=== PATIENT | male | born 1995 | race Caucasian/White ===

== ENCOUNTER 2017-12-23 07:49 | Outpatient (CLI) | payer OTHER ==
--- NOTE | 2017-12-23 11:54 | MRI Report ---
Reason: PAIN IN LEFT FOOT Procedure Date: 12/23/2017 Accession Number: [id number] / [id number] Procedure: MRI - Foot LT W/O CPT Code: FULL RESULT: EXAM: LEFT MIDFOOT MRI WITHOUT CONTRAST EXAM DATE: 12/23/2017 08:43 AM. CLINICAL HISTORY: Plantar left midfoot pain. COMPARISON: None. TECHNIQUE: Multiplanar, multisequence T1-weighted and fluid-sensitive sequences of the midfoot without contrast. Other: None. FINDINGS: Bones: No fractures or subluxations. No marrow edema. No bone lesions. Articular Cartilage: Unremarkable. Ligaments: The visualized intertarsal, intermetatarsal, and tarsometatarsal ligaments are intact. This includes the Lisfranc ligament. The visualized collateral ligaments are intact. Tendons: The flexor and extensor tendons are unremarkable. Musculature: No edema or fatty atrophy. Other: No effusions. The visualized portion of the tarsal tunnel is unremarkable. No intermetatarsal bursitis. The subcutaneous tissues are unremarkable. IMPRESSION: No MRI abnormalities in the midfoot. [facility] MUSCULOSKELETAL RADIOLOGY SECTION
== END 2017-12-23 07:50 | disposition home or self-care (01) ==
LOC: DI 07:49
DX: M79.672 Pain in left foot (principal)